=== PATIENT | female | born 2000 ===

== ENCOUNTER 2022-10-22 11:30 | Emergency (ER) | payer OTHER ==
[~2022-10-22] VITALS: Ht 154.9 cm; Wt 47.2 kg
[2022-10-22] MEDS ORDERED: ONDANSETRON ODT4 MG PO (13:03)
== END 2022-10-22 13:14 | disposition home or self-care (01) ==
LOC: EMR PED 11:30 → ER 11:30 → EMR PED 12:38
DX: H93.8X2 Other specified disorders of left ear (principal)